=== PATIENT | male | born 2000 | race Two or more races ===

== ENCOUNTER 2022-10-23 20:59 | Emergency (ER) | payer MEDICAID ==
[~2022-10-23] VITALS: Ht 185.4 cm; Wt 165.0 kg
[2022-10-23] MEDS ORDERED: HYDROcodone-ACET 10/325MG TAB PO ONE (21:30)
[2022-10-23] MEDS ORDERED: IBUP800T26 PO (22:40)
[2022-10-23 23:01] VITALS: BP 123/78
== END 2022-10-24 00:10 | disposition home or self-care (01) ==
LOC: ER 20:59
DX: S43.421A Sprain of right rotator cuff capsule, initial encounter (principal); S40.011A Contusion of right shoulder, initial encounter; X58.XXXA Exposure to other specified factors, initial encounter; Y93.64 Activity, baseball; Y92.89 Other specified places as the place of occurrence of the external cause; Y99.8 Other external cause status
CPT/HCPCS: 73030

== ENCOUNTER 2023-07-25 20:02 | Emergency (ER) | payer MEDICAID ==
[~2023-07-25] VITALS: Ht 185.4 cm; Wt 160.1 kg
[~2023-07-25 20:02] MED LIST: IBUP-1455 PO
[2023-07-25 20:56] VITALS: BP 131/77; PULSE 99; RESP 17; TEMP 97.4
[2023-07-26] MEDS ORDERED: IBUP-1456 PO (00:37)
[2023-07-26] MEDS ORDERED: KETOROLAC TROMETH 60MG/2ML VIAL IM ONE (00:45)
[2023-07-26 01:07] VITALS: O2SAT 95
== END 2023-07-26 02:45 | disposition home or self-care (01) ==
LOC: ER 20:02
DX: S46.911A Strain of unspecified muscle, fascia and tendon at shoulder and upper arm level, right arm, initial encounter (principal); X58.XXXA Exposure to other specified factors, initial encounter; Y93.72 Activity, wrestling; Y92.092 Bedroom in other non-institutional residence as the place of occurrence of the external cause; Y99.8 Other external cause status
CPT/HCPCS: 73030; 96372; 99283; J1885